=== PATIENT | male | born 1965 | race Caucasian/White ===

== ENCOUNTER 2019-02-11 07:19 | Outpatient (CLI) | payer OTHER ==
[~2019-02-11] VITALS: Ht 185.4 cm; Wt 81.6 kg
[~2019-02-11 07:19] MED LIST: BACTROBAN OINT22 GM TP
[2019-02-11] MEDS ORDERED: MELATONIN10 M2 PO (09:00)
== END 2019-02-11 12:44 | disposition home or self-care (01) ==
LOC: OFIC 805 07:19
DX: H93.13 Tinnitus, bilateral (principal)

== ENCOUNTER 2022-11-12 07:09 | Outpatient (CLI) | payer OTHER ==
[~2022-11-12 07:09] MED LIST changes: +MELATONIN10 M2 PO
== END 2022-11-12 07:16 | disposition home or self-care (01) ==
LOC: TOM 07:09
PROVIDERS: ATTEND Urology
DX: N40.0 Benign prostatic hyperplasia without lower urinary tract symptoms (principal); R31.21 Asymptomatic microscopic hematuria; N20.1 Calculus of ureter; F52.21 Male erectile disorder

== ENCOUNTER 2023-05-13 10:00 | Outpatient (CLI) | payer OTHER | END 2023-05-13 10:12 | disposition home or self-care (01) | LOC: SONOGRAMA 10:00 | PROVIDERS: ATTEND Urology | DX: N40.0 Benign prostatic hyperplasia without lower urinary tract symptoms (principal); R31.21 Asymptomatic microscopic hematuria; N20.1 Calculus of ureter; F52.21 Male erectile disorder ==

== ENCOUNTER 2024-02-24 10:31 | Outpatient (CLI) | payer OTHER | END 2024-02-24 10:43 | disposition home or self-care (01) | LOC: RAD 10:31 | PROVIDERS: ATTEND Specialist | DX: M72.2 Plantar fascial fibromatosis (principal); M47.812 Spondylosis without myelopathy or radiculopathy, cervical region; M17.11 Unilateral primary osteoarthritis, right knee; M17.12 Unilateral primary osteoarthritis, left knee; M22.41 Chondromalacia patellae, right knee; M22.42 Chondromalacia patellae, left knee ==

== ENCOUNTER 2024-11-02 08:50 | Outpatient (CLI) | payer OTHER | END 2024-11-02 08:52 | disposition home or self-care (01) | LOC: SONOGRAMA 08:50 | PROVIDERS: ATTEND Urology | DX: R31.0 Gross hematuria (principal); R33.9 Retention of urine, unspecified ==